=== PATIENT | male | born 1970 | race Caucasian/White ===

== ENCOUNTER 2017-05-31 12:10 | Day surgery (SDC) | payer BC ==
[~2017-05-31 12:10] MED LIST: HYDROmorphone 2 MG/ML VIAL IV; LIDOCAINE 1% PF 2 ML VIAL. ID; MORPHINE SULFATE 2 MG/ML DISP.SYRIN. IV; ONDANSETRON PF 4 MG/2 ML VIAL. IV; PROCHLORPERAZINE 10 MG/2 ML VIAL. IV; fentaNYL PF VIAL 100 MCG/2 ML VIAL IV
[2017-05-31] MEDS ORDERED: PROPOFOL 20 ML IV (12:33)
[2017-05-31] MEDS ORDERED: fentaNYL PF VIAL 100 MCG/2 ML VIAL ×3 (12:33→15:51)
[2017-05-31] MEDS ORDERED: ROCURONIUM 50 MG/5 ML VIAL. (12:33)
[2017-05-31] MEDS ORDERED: LIDOCAINE 2% PF Vial for OR 5 ML VIAL. (12:33)
[2017-05-31] MEDS: IV RINGERS,LACTATED 1000ML 1,000 ML IV (12:42)
[2017-05-31] MEDS: BUPIVAC MPF-EPI 0.75%-1:200000 30 ML VIAL. (14:56)
[2017-05-31] MEDS ORDERED: GLYCOPYRROLATE 1 MG/5 ML VIAL. (14:58)
[2017-05-31] MEDS ORDERED: DEXAMETHASONE SOD PHOS 20 MG/5 ML VIAL. (14:58)
[2017-05-31] MEDS ORDERED: DESFLURANE 31 TO 60 MINUTES IH (14:58)
[2017-05-31] MEDS ORDERED: ONDANSETRON PF 4 MG/2 ML VIAL. (14:58)
[2017-05-31] MEDS ORDERED: ePHEDrine PF IN SALINE 50 MG/5 ML DISP.SYRIN IV (15:01)
[2017-05-31] MEDS: oxyCODONE/APAP 5/325 1 TAB TABLET PO (16:14)
== END 2017-05-31 16:45 | disposition home or self-care (01) ==
LOC: SURG 12:10
DX: K40.90 Unilateral inguinal hernia, without obstruction or gangrene, not specified as recurrent (principal); I10 Essential (primary) hypertension; Z86.69 Personal history of other diseases of the nervous system and sense organs; Z87.39 Personal history of other diseases of the musculoskeletal system and connective tissue; Z72.89 Other problems related to lifestyle; Z72.0 Tobacco use
CPT/HCPCS: 49650; C1781; J1100; J2405; J2704; J3010; J3490; J7120

== ENCOUNTER → 2018-01-07 | Outpatient (CLI) | payer BC ==
[2017-05-31 16:40] VITALS: BP 128/78
[~2018-01-07] MED LIST changes: +HYDR-971 PO; -HYDROmorphone 2 MG/ML VIAL IV; -LIDOCAINE 1% PF 2 ML VIAL. ID; +LISI10TA2 PO; +MELO15TA23 PO; -MORPHINE SULFATE 2 MG/ML DISP.SYRIN. IV; -ONDANSETRON PF 4 MG/2 ML VIAL. IV; +OXYC-323 PO; -PROCHLORPERAZINE 10 MG/2 ML VIAL. IV; -fentaNYL PF VIAL 100 MCG/2 ML VIAL IV
--- NOTE | 2018-01-07 09:32 | CARD ---
MR#: [id number] Date of Study: 01/07/2018 Ordering Physician: EUNICE NGO, Referring Physician: EUNICE NGO, Tech: Angelita Baker [place]ST[place] APPROVED REPORT EXAM: Two-dimensional and M-mode echocardiogram with Doppler and color Doppler. Other Information Quality : Good INDICATION Syncope 2D DIMENSIONS RVDd3.0 (2.9-3.5cm)Left Atrium(2D)3.9 (1.6-4.0cm) IVSd1.1 (0.7-1.1cm)Aortic Root(2D)2.8 (2.0-3.7cm) LVDd4.9 (3.9-5.9cm)LVOT Diameter2.3 (1.8-2.4cm) PWd1.0 (0.7-1.1cm)LVDs3.1 (2.5-4.0cm) FS (%) 35.9 %SV73.1 ml LVEF(%)60.0 (>50%) Aortic Valve AoV Peak Vijay.141.0cm/sAoV VTI27.1cm AO Peak GR.7.9mmHgLVOT Peak Vijay.134.7cm/s LVOT VTI 26.81cmAO Mean GR.4mmHg RAEANN (VMAX)4.69pu8UHG (VTI)4.19cm2 Mitral Valve MV E Etpwodnt35.2cm/sMV DECEL TKAQ559pc MV A Fsztbmgz47.2cm/sMV FSP82wh E/A Ratio0.8MVA (PHT)3.03cm2 TDI E/Lateral E'4.4E/Medial E'6.5 Tricuspid Valve TR P. Fnhlnqoj495vg/sRAP XBCHEBYN4zxUf TR Peak Gr.83woKpIFSW54smHa Pulmonary Vein S1 Raqyemts51.0cm/sD2 Kaqoeqov41.7cm/s LEFT VENTRICLE The left ventricle is normal size. There is normal left ventricular wall thickness. The left ventricu lar systolic function is normal . The Ejection Fraction is 55-60%. There is normal LV segmental wall motion. Transmitral Doppler flow pattern is Grade I-abnormal relaxation pattern. RIGHT VENTRICLE The right ventricle is normal size. The right ventricular systolic function is normal. ATRIA The left atrium size is normal. The right atrium size is normal. The interatrial septum is intact wit h no evidence for an atrial septal defect or patent foramen ovale as noted on 2-D or Doppler imaging. AORTIC VALVE The aortic valve is normal in structure and function. Doppler and Color Flow revealed no significant aortic regurgitation. There is no significant aortic valvular stenosis. MITRAL VALVE The mitral valve is normal in structure and function. There is no evidence of mitral valve prolapse. There is no mitral valve stenosis. Doppler and Color-flow revealed trace mitral regurgitation. TRICUSPID VALVE The tricuspid valve is normal in structure and function. Doppler and Color Flow revealed trace tricus pid regurgitation. The PA pressure was estimated at 27 mmHg. There is no tricuspid valve stenosis. PULMONIC VALVE The pulmonic valve is not well visualized. Doppler and Color Flow revealed no pulmonic valvular regur gitation. There is no pulmonic valvular stenosis. GREAT VESSELS The aortic root is normal in size. The ascending aorta is normal in size. The IVC is normal in size a nd collapses >50% with inspiration. PERICARDIAL EFFUSION There is no evidence of significant pericardial effusion. Critical Notification Critical Value: No <Conclusion> The left ventricular systolic function is normal . The Ejection Fraction is 55-60%. There is normal LV segmental wall motion. Transmitral Doppler flow pattern is Grade I-abnormal relaxation pattern. Trace mitral regurgitation. Trace tricuspid regurgitation. The PA pressure was estimated at 27 mmHg. There is no evidence of significant pericardial effusion. Signed by : Alin Berger, Electronically Approved : 01/07/2018 09:31:09
--- NOTE | 2018-01-07 15:18 | RAD ---
MR#: [id number] Date of Study: 01/07/2018 Ordering Physician: EUNICE NGO, Referring Physician: EUNICE NGO, Tech: Joselito Collazo MBA, RDMS, RVT, RDCS, RTR APPROVED REPORT Patient Location: OUT-PATIENT Laterality:Bilateral Indications Dizziness and Vertigo Syncope Doppler Spectral Velocity Analysis Right Left pCCA 107/16 cm/spCCA 132/36 cm/s mCCA 112/23 cm/smCCA 104/25 cm/s dCCA 103/24 cm/sdCCA 98/23 cm/s Bulb 62/17 cm/sBulb 57/16 cm/s ECA 99/ cm/sECA 103/ cm/s pICA 55/22 cm/spICA 105/24 cm/s Mathew 67/24 cm/smICA 79/29 cm/s dICA 65/24 cm/sdICA 65/24 cm/s Vert. 46/ cm/sVert. 37/ cm/s Subcl. 146/ cm/sSubcl. 104/ cm/s ICA/CCA 0.60ICA/CCA 0.80 Findings Grayscale images of the bilateral common carotid, internal and external carotid vessels do not reveal any focal obstructive disease. Spectral waveforms and color Doppler are grossly within normal limits in the carotid arterial vessels . The vertebral velocities are blunted but appear to be antegrade. Normal ICA to CCA ratios are noted. Critical Notification Critical Value: No <Conclusion> No significant carotid arterial disease with antegrade vertebral velocities noted. Signed by : Eunice Ngo, Electronically Approved : 01/07/2018 15:17:38
== END | disposition home or self-care (01) ==
LOC: ECHO 08:00
PROVIDERS: ATTEND Internal Medicine Cardiovascular Disease
DX: R55 Syncope and collapse (principal); I10 Essential (primary) hypertension; Z87.39 Personal history of other diseases of the musculoskeletal system and connective tissue; Z86.69 Personal history of other diseases of the nervous system and sense organs
CPT/HCPCS: 93306; 93880

== ENCOUNTER → 2018-01-07 | Outpatient (CLI) | payer BC ==
[2017-05-31 16:40] VITALS: BP 128/78
[~2018-01-07] MED LIST changes: +GADOBUTROL 10 MMOL/10 ML VIAL IV ONE
--- NOTE | 2018-01-10 15:34 | RAD ---
MRI of the abdomen without and with contrast 01/07/2018 CLINICAL HISTORY: Complex lesion involving the tail of pancreas seen on outside CT scan. MRI was recommended for further evaluation. TECHNIQUE: Unenhanced T2-weighted, T1-weighted and in and out of phase, and diffusion-weighted axial and fat saturated T2-weighted axial and coronal images of the abdomen were obtained. After the intravenous administration of 10 cc of Gadavist, enhanced dynamic, fat saturated T1-weighted axial images of the abdomen were obtained. Delayed fat saturated enhanced T1-weighted coronal images of the abdomen were obtained. FINDINGS: Comparison is made to patient's CT scan of the abdomen and pelvis performed at [facility] in [facility] dated 12/07/2017. A complex cystic mass is seen surrounding the tail of pancreas which measures 4.8 x 3.8 x 3.4 cm in transverse, AP and craniocaudal dimensions. This corresponds to the abnormality seen on the patient's CT scan. Its MRI and CT appearance are concerning for a neoplastic process (cystadenoma/adenocarcinoma, etc.). No additional abnormality of the pancreas is seen. The liver, spleen, adrenal glands and kidneys are within normal limits. The abdominal aorta tapers normally. The gallbladder is well-distended. No free fluid is seen within the abdomen. No retroperitoneal lymphadenopathy is seen. There is no evidence of bowel obstruction. Mild S-shaped curvature of the thoracolumbar spine is seen. IMPRESSION: 4.8 cm complex mass is seen involving the tail of pancreas which is concerning for a neoplastic process. Electronically signed by: Go Hazel MD (01/10/2018 3:30 PM) [id number]
== END | disposition home or self-care (01) ==
LOC: MRI 07:51
PROVIDERS: ATTEND Neuromusculoskeletal Medicine & OMM
DX: R55 Syncope and collapse (principal); I10 Essential (primary) hypertension; Z87.39 Personal history of other diseases of the musculoskeletal system and connective tissue; Z86.69 Personal history of other diseases of the nervous system and sense organs
CPT/HCPCS: 74183; A9585

== ENCOUNTER → 2018-03-28 | Outpatient (CLI) | payer BC ==
[2017-05-31 16:40] VITALS: BP 128/78
[~2018-03-28] MED LIST changes: +ALPR0.25 PO
--- NOTE | 2018-03-28 13:23 | KCIC ---
MRI Brain with and without contrast History: Dizziness Technique: Multiplanar, multi sequential pre and postcontrast MR imaging was performed of the brain. Contrast: 10 cc Gadavist Comparison: None Findings: There is no evidence of recent infarct or cytotoxic edema. Ventricular size is within normal limits. There is mild prominence of bifrontal subarachnoid spaces. There is no significant midline shift, intraaxial mass effect, or focal abnormal extra-axial fluid collection. There are a few scattered small foci of nonenhancing T2 and FLAIR hyperintense signal of the bifrontal deep white matter. There is no nodular parenchymal or leptomeningeal enhancement. There is preservation of the major intracranial flow-voids at the skull base. The cerebellar tonsils are normal in location. There is no significant abnormality of the pineal gland or pituitary gland. There is mild mucosal thickening and 1.6 cm mucous retention cyst right maxillary sinus. The mastoid air cells are aerated. There is preserved marrow signal of the clivus. There is asymmetric pneumatization of the right petrous apex compared with the left. Impression: 1. There is mild prominence of the bifrontal subarachnoid spaces of uncertain chronicity, could be on a developmental basis or due to involutional change. There are a few small foci of nonspecific, nonenhancing signal abnormality of the bifrontal deep white matter. White matter changes can be seen in patients with migraine headaches if corresponding history, could be due to chronic microvascular ischemic disease if risk factors such as hypertension or diabetes. Electronically signed by: Andre Mccoy MD (03/28/2018 1:20 PM) [id number]
== END | disposition home or self-care (01) ==
LOC: KCIC MRI 09:43
PROVIDERS: ATTEND Neuromusculoskeletal Medicine & OMM
DX: J34.1 Cyst and mucocele of nose and nasal sinus (principal); I10 Essential (primary) hypertension; Z79.01 Long term (current) use of anticoagulants
CPT/HCPCS: 70553; A9585